=== PATIENT | female | born 2000 | race Caucasian/White ===

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

== ENCOUNTER → 2024-03-23 | Outpatient (REF) | payer BC, OTHER | LOC: LAB 15:06 | DX: U07.1 COVID-19 (principal); R50.9 Fever, unspecified ==